=== PATIENT | male | born 1945 | race Caucasian/White ===

== ENCOUNTER 2019-08-31 15:16 | Inpatient (IN) | payer MEDICARE ==
[~2019-08-31 15:16] MED LIST: Iopamidol 370 76% 100 ML VIAL ONE
--- NOTE | 2019-08-31 16:10 | RAD ---
Exam: Chest one view HISTORY:Cough. Shortness of breath. Comparison: 06/30/2017 FINDINGS: Cardiac silhouette:Cardiomegaly. Aorta: Atherosclerosis Pulmonary vessels: Normal Costophrenic angles: Clear LUNGS: Increased right perihilar opacity which may represent pneumonia. Underlying mass lesion cannot be excluded in a patient with the Mediport catheter. Pneumothorax: None Osseous abnormalities: None IMPRESSION: 1. Cardiomegaly. 2. Atherosclerosis 3. Right perihilar opacity due to pneumonia or mass. Consider CT.
[2019-08-31 16:16] LABS: #Basophils 0.1 thou/uL (0.0-0.2); #Eosinphils 0.2 thou/uL (0.0-0.7); #Lymphocytes 1.2 thou/uL (1.20-3.40); #Monocytes 0.9 thou/uL (0.11-0.59); #Neutrophils 8.2 thou/uL (1.40-6.50); %Basophils 0.7 % (0.0-1.0); %Eosinophils 2.2 % (0.0-10.0); %Lymphocytes 10.9 % (21.0-51.0); %Monocytes 8.2 % (0.0-10.0); %Neutrophils 78.1 % (42.0-75.0); Hemoglobin 13.6 g/dL (14.0-18.0); Mean Corpuscular HGB CONC 31.2 g/dL (32.0-36.0); Mean Corpuscular Hemoglobin 27.7 pg (27.0-31.0); Mean Corpuscular Volume 88.8 fL (78.0-98.0); Mean Platelet Volume 10.7 fL (7.4-10.4); Platelet Count 193 thou/uL (130-400); RBC Distribution Width 14.6 % (11.5-14.5); Red Blood Cell (RBC) Count 4.91 mill/uL (4.70-6.10); White Blood Cell (WBC) Count 10.5 thou/uL (4.8-10.8)
[2019-08-31 16:33] LABS: ALT (SGPT) 17 U/L (8-55); AST (SGOT) 41 U/L (5-34); Albumin 3.6 g/dL (3.4-4.8); Alkaline Phosphatase 65 U/L (40-110); Anion Gap 11 mmol/L (10-20); BUN (Urea Nitrogen) 21 mg/dL (8.4-25.7); Bilirubin, Total 0.5 mg/dL (0.2-1.2); Calc. Creatinine Clearance 0 mL/min (70-130); Calcium 9.6 mg/dL (7.8-10.44); Carbon Dioxide 33 mmol/L (23-31); Chloride 100 mmol/L (98-107); Estimated GFR-MDRD 41; Globulin 3.7 g/dL (2.4-3.5); Glucose 325 mg/dL (83-110); Potassium 3.6 mmol/L (3.5-5.1); Protein, Total 7.3 g/dL (5.8-8.1); Sodium 140 mmol/L (136-145)
[2019-08-31 17:05] LABS: CKMB 14.2 ng/mL (0-6.6)
[2019-08-31] MEDS ORDERED: Aspirin Chewable 81 MG TAB ONE (17:29)
[2019-08-31] MEDS ORDERED: Nitroglycerin 2% Ointment 1 INCH/1 GM Packet ONE (17:29)
--- NOTE | 2019-08-31 18:42 | CT ---
CT OF THE CHEST WITH IV CONTRAST INDICATION: 73-year-old male with history of weakness and fall COMPARISON: Single view of the chest dated August 31, [address]-guided therapy field planning evalua tion of the lower abdomen and pelvis dated October 12, 2008. FINDINGS: CHEST: Lungs: There is a large right suprahilar mass measuring 4.8 x 4.3 cm with postobstructive pneumonia o f the anterior segment of the right upper lobe. There is a right lower lobe lung mass measuring 3.4 x 2.7 cm. There is reticular nodularity seen within the posterior lateral segment of the right lower lobe suspicious for lymphangitic spread of the lesion. There is a sub-4 mm pulmonary nodule in the right upper lobe on image 36 of series 3. There is severe emphysema. There is reticular opacity withi n the subpleural region of the left upper lobe suspicious for areas of subsegmental volume loss. No suspicious pulmonary lesion is seen within the left lung. . Pleural space: No effusion. Mediastinum: There is a mildly enlarged right paratracheal lymph node measuring 1.3 cm. There coronar y artery and thoracic aortic calcifications. There is a right subclavian chest wall port. Upper abdomen:Fatty liver Osseous structures: No acute osseous abnormality. No destructive osteolytic or osteoblastic lesion i s identified. There is scattered degenerative and osteoarthritic changes. Soft tissues:Normal. IMPRESSION: 1. Large right suprahilar mass with postobstructive pneumonia of the right upper lobe is suspicious f or primary lung malignancy 2. Right lower lobe lung mass suspicious for secondary primary lung malignancy versus metastatic dise ase. There are reticular opacities projecting into the posterior lateral right lower lobe from this lesion suspicious for lymphangitic spread of tumor. 3. Mildly enlarged right paratracheal lymph node. 4. PET/CT is recommended. Patient has history of rectal cancer. The above-mentioned lesions could be metastatic in origin. 5. Fatty liver
[2019-08-31] MEDS ORDERED: Acetaminophen 325 MG TAB PO PRN (20:17)
[2019-08-31] MEDS ORDERED: Acetaminophen 650 MG Suppository PR PRN (20:17)
[2019-08-31] MEDS ORDERED: Dextrose 50% Abboject 50 ML SYRINGE SLOW IVP PRN (20:44)
[2019-08-31] MEDS ORDERED: HumaLOG 300 UNITS/3 ML VIAL SC PRN (20:44)
[2019-08-31] MEDS ORDERED: Dextrose 5% in Water 1,000 ML IV PRN (20:44)
[2019-08-31 20:57] LABS: Magnesium 1.5 mg/dL (1.6-2.6)
[2019-08-31 21:24] LABS: CKMB 13.4 ng/mL (0-6.6); Critical Call CKMB RESULT DECREASING
[2019-08-31] MEDS ORDERED: Magnesium Oxide 400 MG TAB PO SCH (22:00)
[2019-08-31] MEDS ORDERED: Sodium Chloride 0.45% 1,000 ML IV SCH (22:00)
--- NOTE | 2019-08-31 22:58 | HP ---
TIME OF ASSESSMENT: 1899. CHIEF COMPLAINT: "My legs are weak and I fell over a day ago." HISTORY OF PRESENT ILLNESS: Mr. Oleary is a 73-year-old gentleman who presented to the emergency department today after having a fall at home yesterday. The patient states his legs gave out and states he suddenly experienced lower extremity weakness since 2 days ago. Denies any major injuries except for abrasions to both of his knees. Denies having any pain at present. He states he was down on the floor, unable to get back up due to the weakness in his legs. Normally, he does not use any assistive devices to get around. He is able to walk independently. He reports having issues with urinary hesitancy for the last 3 days, but denies any dysuria. Denies any hematuria. States he has felt as if he is unable to fully empty his bladder. Also reports having a cough that developed 3 days ago which has been occasionally productive for brown to bloody looking sputum. Denies having any associated chest pain. Reports chronic shortness of breath that remains unchanged. He has a history of COPD and continues to smoke. He uses continuous oxygen at home and also uses inhalers, but does not use nebulizer treatments. Denies experiencing any wheezing. Again, no changes with his breathing and states he feels like his normal self except for the lower extremity weakness. Denies any associated numbness or tingling to the lower legs, but does report some pain in his legs. Has not noted any significant calf swelling. Denies having any changes with his stools. No recent fevers or chills. No headaches or dizziness. Prior to falling, he denies experiencing any symptoms. At present, he denies any major complaints. Of note, patient does have a history of colon cancer and underwent resection many years ago. He has an ostomy. EMERGENCY DEPARTMENT COURSE: The patient was first seen at [facility] yesterday at approximately 3 p.m. He had commented in due to "spasm" in the left leg. He had complained of both legs feeling weak at that time. Neuro examination unremarkable. The patient had been discharged home as he was noted to ambulate well with a walker. He did receive 1 L of normal saline while in the ER. Also underwent investigations, including a urinalysis which showed 500 of glucose, trace blood, rare to few bacteria and otherwise unremarkable. LABORATORY STUDIES: Done showed a white cell count of 9, hemoglobin 12.2, hematocrit 42.7, platelets 184. Magnesium 1.6, BUN 26, creatinine 1.99, GFR 33, albumin 3.3. Otherwise unremarkable. Troponin was negative. He had imaging done including a lumbar spine x-ray which showed mild degenerative changes at L4-L5 with minor spondylolisthesis and pars defects at L4. CT of the head was also done showing no acute intracranial findings. An EKG showed an incomplete right bundle-branch block with normal ST segments and nonspecific T-waves. Normal sinus rhythm with a heart rate of 63. The patient felt to be mildly dehydrated with improvement in ambulation with the help of a walker and therefore deemed safe for discharge home. The case had been discussed with Dr. Sung, who planned to arrange for a walker to be given today. Apparently, patient fell while at home and was unable to stand up. He had a chest x-ray done today showing cardiomegaly with atherosclerosis and presence of a right perihilar opacity due to pneumonia or mass. CT of the chest was recommended. A CT of the chest then demonstrated a large right suprahilar mass with postobstructive pneumonia of the right upper lobe suspicious for primary lung malignancy. Right lower lobe lung mass suspicious for secondary primary lung malignancy versus metastatic disease. There were reticular opacities projecting into the posterior lateral right lower lobe suspicious for lymphangitic spread. A mildly enlarged right peritracheal lymph node was noted. Given history of rectal cancer, it was felt findings could be metastatic in nature, therefore, a PET-CT scan was recommended. Also noted were fatty liver changes. He was noted on the laboratory studies to have an indeterminate troponin of 0.036 and CK-MB of 14.2. He was given 324 mg of aspirin and an EKG was done showing normal sinus rhythm with a heart rate of 93. Nonspecific ST changes as per ED physician. The patient was given 1 L of normal saline, also Nitro-Bid 1 inch. He is being admitted for lower extremity weakness, elevated troponin, and hyperglycemia. PAST MEDICAL HISTORY: 1. Type 2 diabetes mellitus. 2. History of colon cancer. 3. Hypertension. 4. Hyperlipidemia. 5. Peripheral arterial disease. 6. COPD. 7. CHF. 8. Home O2 dependent, 3 L by nasal cannula. 9. Obesity. PAST SURGICAL HISTORY: 1. Previous back surgery. 2. Bilateral peripheral stents in both legs. 3. Colon resection with ostomy in place. 4. Coronary artery stents. SOCIAL HISTORY: The patient lives alone and normally mobilizes independently. Denies any alcohol consumption. Smokes half a pack a day and previously smoked one pack a day for 50 years. ALLERGIES: NO KNOWN DRUG ALLERGIES. PHYSICAL EXAMINATION: GENERAL: The patient appears obese, resting comfortably on a stretcher, in no acute distress. VITAL SIGNS: Temperature 98.5, pulse 77, blood pressure 150/60, respirations 23, O2 saturation 95% on 2 L. HEENT: Normocephalic and atraumatic. Pupils are equal, round, and reactive to light. Extraocular movements intact. Oropharynx is notable for dry oral mucosa. NECK: Supple. LUNGS: Notable for coarse lung sounds bilaterally without any wheezing. CARDIAC: Regular rate and rhythm. ABDOMEN: Obese, soft, nontender. Large left lower quadrant parastomal hernia. No rigidity. Bowel sounds present. EXTREMITIES: Abrasions noted to the bilateral knees with slight erythema. No active bleeding or discharge. Chronic skin changes to the lower extremities associated with history of PAD. No wounds or evidence of cellulitis. Unable to straight leg raise due to general weakness. Sensation intact in bilateral extremities. NEUROLOGIC: Alert and oriented x3. Full range of motion and 4/4 strength in bilateral upper extremities. Lower extremities, unable to straight leg raise without resistance. Able to plantarflex and extend with good amount of power bilaterally. INVESTIGATIONS: As mentioned above in HPI. IMPRESSION AND PLAN: Mr. Oleary is a 73-year-old gentleman who reports having a mechanical fall at home yesterday after being discharged from the ER in [place] and being admitted for management of the following. 1. Lower extremity weakness. The patient reports it came on suddenly 2 days ago. Has not noted any associated neuro deficits or gradual decline in lower extremity strength. Therefore, underlying neuro cause unlikely, though is a possibility. He did report having some urinary hesitancy in the last couple of days. We will obtain repeat UA and urine culture and we will have a postvoid bladder scan done to assess for any underlying retention. There was mention of pneumonia on chest imaging, therefore, underlying infection could be a cause in addition to malignancy. Given the fall was yesterday and he was on the ground for hours, we will obtain a CK to assess for rhabdomyolysis. I have consulted PT/OT. The patient at risk for falls, though he denies any presyncope/syncope type symptoms. We will continue cardiac monitoring, obtain an echo and orthostatic blood pressures. Continue gentle hydration. 2. Elevated troponin. As mentioned, patient with indeterminate troponin. We will continue to trend troponins. CK-MB was elevated, but this could potentially be due to rhabdomyolysis. I have ordered CK as mentioned above. We will continue cardiac monitoring. EKG unremarkable. The patient without any complaints of chest pain. Further investigations as per Day Team. 3. Lung masses (primary versus metastatic disease). The patient with a known history of colon cancer. PET-CT has been recommended. Consult placed to Pulmonary for bronchoscopy with biopsy. We will consult Oncology as well. Further investigations as per Day Team. We will keep the patient n.p.o. after midnight. 4. Diabetes mellitus, uncontrolled. Glucose is 325. Insulin sliding scale initiated. We will reconcile home medications once verified. 5. Hypertension. Monitor blood pressure. Reconcile home medications once verified. 6. Chronic obstructive pulmonary disease. As mentioned, patient is dependent on O2 at home. Continue to monitor O2 saturations, which appeared to be stable. Given renal function, it would be difficult to rule out the possibility of PE as a cause of the fall. The patient is a poor historian, though he continues to insist it was a mechanical fall rather than syncopal episode/collapse. Since he does complain of bilateral leg pain, we will obtain venous Dopplers. 7. Chronic congestive heart failure. No echocardiogram on file. As mentioned, we will obtain an echo. 8. Gastrointestinal prophylaxis with famotidine. 9. Deep venous thrombosis prophylaxis. We will hold any pharmacoprophylaxis in the event that he requires any biopsies. Also we will await results of venous Dopplers. 10. Code status is full. Surrogate decision maker is his son, Dev Oleary. Case discussed with attending who agrees upon care as described above. Job ID: [id number]
--- NOTE | 2019-08-31 23:04 | ULT ---
BILATERAL LOWER EXTREMITY VENOUS DOPPLER EVALUATION PROVIDED CLINICAL HISTORY: Fall with bilateral lower extremity stents and concern for bilateral lower extremity deep venous thro mboses TECHNIQUE: Grayscale, color doppler and spectral doppler images were obtained of the common femoral , femoral, profunda femoral, popliteal and posterior tibial veins of both lower extremities. FINDINGS: There is normal compression, flow and augmentation seen with the deep venous structures within both l ower extremities. IMPRESSION: No sonographic evidence for lower extremity deep venous thrombosis.
[2019-08-31] MEDS: Famotidine/PF 20 mg/2ml Vial SLOW IVP SCH (23:11)
[2019-08-31] MEDS: Sodium Chloride 0.45% 1,000 ML IV SCH (23:31)
[2019-09-01 00:01] VITALS: BMI 34.3
[2019-09-01 00:48] LABS: CKMB 13.3 ng/mL (0-6.6); Critical Call CKMB RESULT DECREASING
[2019-09-01 00:53] LABS: Bacteria/HPF None Seen HPF (None Seen); Bilirubin Negative (Negative); Blood, Urine 2+ (Negative); Clarity Clear (Clear); Glucose, Urine (Dipstick) Greater than 1000 mg/dL (Negative); Ketone, Urine Negative (Negative); Leukocyte Negative Leu/uL (Negative); Nitrite Negative (Negative); Protein, Urine (Dipstick) 70 mg/dL (Neg-Trace); RBC/HPF 0-3 HPF (0-3); Specific Gravity, Urine 1.024 (1.002-1.036); Squamous Epithelial 0-3 HPF (0-3); Urobilinogen Normal mg/dL (Less than 2); WBC/HPF 0-3 HPF (0-3); pH, Urine 5.5 (5.0-9.0)
[2019-09-01 00:55] LABS: Urine Culture Reflex No No
[2019-09-01 01:06] LABS: Amphetamine Not Detected (NotDetected); Barbiturates Screen Not Detected (NotDetected); Benzodiazepine Screen Not Detected (NotDetected); Cocaine Metabolite Screen Not Detected (NotDetected); Medtox Control Line Valid? VALID (VALID); Medtox Reader # READER 4; Methadone Not Detected (NotDetected); Methamphetamine Not Detected (NotDetected); Opiate Screen Not Detected (NotDetected); Oxycodone Screen Not Detected (NotDetected); Phencyclidine (PCP) Not Detected (NotDetected); THC/Cannabinoid Screen Not Detected (NotDetected); Tricyclic Screen Not Detected (NotDetected)
[2019-09-01 04:46] LABS: Prothrombin Time 13.4 sec (12.0-14.7)
[2019-09-01 05:29] LABS: ALT (SGPT) 21 U/L (8-55); AST (SGOT) 49 U/L (5-34); Albumin 3.3 g/dL (3.4-4.8); Alkaline Phosphatase 59 U/L (40-110); Anion Gap 11 mmol/L (10-20); BUN (Urea Nitrogen) 15 mg/dL (8.4-25.7); Bilirubin, Total 0.5 mg/dL (0.2-1.2); Calc. Creatinine Clearance 91 mL/min (70-130); Calcium 9.2 mg/dL (7.8-10.44); Carbon Dioxide 29 mmol/L (23-31); Chloride 103 mmol/L (98-107); Estimated GFR-MDRD 59; Globulin 3.5 g/dL (2.4-3.5); Glucose 194 mg/dL (83-110); Potassium 3.6 mmol/L (3.5-5.1); Protein, Total 6.8 g/dL (5.8-8.1); Sodium 139 mmol/L (136-145)
[2019-09-01 06:36] LABS: #Eosinphils 0.4 thou/uL (0.0-0.7); #Lymphocytes 1.4 thou/uL (1.20-3.40); #Monocytes 0.6 thou/uL (0.11-0.59); %Basophils 0.6 % (0.0-1.0); %Eosinophils 5.5 % (0.0-10.0); %Lymphocytes 18.6 % (21.0-51.0); %Neutrophils 67.2 % (42.0-75.0); Hemoglobin 13.3 g/dL (14.0-18.0); Mean Corpuscular Hemoglobin 26.6 pg (27.0-31.0); Mean Corpuscular Volume 88.6 fL (78.0-98.0); Mean Platelet Volume 10.8 fL (7.4-10.4); Platelet Count 181 thou/uL (130-400); RBC Distribution Width 14.7 % (11.5-14.5); Red Blood Cell (RBC) Count 5.01 mill/uL (4.70-6.10); White Blood Cell (WBC) Count 7.4 thou/uL (4.8-10.8)
[2019-09-01 06:39] LABS: Anisocytosis SLIGHT = 6-15 cells (100X) (0-5/hpf); MDiff Complete? YES; Target Cells SLIGHT = 2-5 cells (100X) (0-1/hpf)
[2019-09-01] MEDS: Famotidine/PF 20 mg/2ml Vial SLOW IVP SCH ×2 (09:53→20:18)
[2019-09-01] MEDS ORDERED: Lisinopril 20 MG TAB PO SCH (12:30)
--- NOTE | 2019-09-01 13:20 | CON ---
DATE OF CONSULTATION: REASON FOR CONSULTATION: Lung mass. HISTORY OF PRESENT ILLNESS: Mr. Oleary is a pleasant 73-year-old gentleman with past medical history of rectal cancer, CHF, and COPD, who presented to the emergency room after a fall at home. He was emptying his colostomy, when he became extremely weak and landed on both knees, both have abrasions. He underwent a brain CT in the ER, which showed no acute findings, although there was significant movement artifact. He underwent a chest CT, which showed a large right suprahilar mass, measuring 4.8 x 4.3 cm. There was postobstructive pneumonia of the anterior segment of the right upper lobe. There was a right lower lobe mass, measuring 3.4 x 2.7 cm. There was reticular nodularity, consistent with lymphangitic spread. There was a sub 4-mm pulmonary nodule in the right upper lobe. He has severe emphysema. There was a mildly enlarged right peritracheal lymph node, measuring 1.3 cm. No metastatic disease in the abdomen. The patient has a longstanding history of smoking [id number] at least. He currently only smokes 5 cigarettes a day. He does have a diagnosis of COPD and is oxygen dependent at home. He denies any recent weight loss. No increasing cough. No hemoptysis. He apparently had rectal cancer around 2008. He was treated at [facility]. He did undergo chemotherapy and had a curative resection. He was followed for 5 years and was last seen in 2013. He has had no issues with his bowels since that time. We were asked to see the patient for recommendations on diagnosis. PAST MEDICAL HISTORY: 1. Rectal cancer status post curative resection. 2. Type 2 diabetes. 3. Hypertension. 4. Hyperlipidemia. 5. COPD with oxygen dependency. 6. Congestive heart failure. 7. Peripheral artery disease. 8. Obesity. PAST SURGICAL HISTORY: 1. Transabdominal resection with colostomy. 2. Back surgery. 3. Bilateral peripheral stents. 4. Coronary artery stents. ALLERGIES: NO KNOWN DRUG ALLERGIES. HOME MEDICATIONS: 1. Atorvastatin. 2. Coreg. 3. Plavix. 4. Fenofibrate. 5. Lasix. 6. Glipizide. 7. Atrovent. 8. Levocetrizine. 9. Levothyroxine. 10. Lisinopril. 11. Actos. 12. Pregabalin. FAMILY HISTORY: Noncontributory. SOCIAL HISTORY: Lives alone. Independent in his ADLs. A [id number] plus of smoking. No alcohol use. REVIEW OF SYSTEMS: A 12-point review of systems is negative except for noted in HPI. PHYSICAL EXAMINATION: VITAL SIGNS: Temperature 97.8, pulse 78, respiratory rate 24, BP is 173/79, and he is 95% on 2 L. GENERAL: This is an obese male, disheveled, in no acute distress. HEENT: Normocephalic and atraumatic. Pupils are equal and reactive to light. NECK: Supple. CV: Regular rate and rhythm. LUNGS: Diminished throughout with expiratory wheezing. ABDOMEN: Obese. He has a colostomy in the left lower quadrant with brown stool. : He has a Church catheter in place with blood-tinged urine. EXTREMITIES: He has 1+ bilateral lower extremity. SKIN: He has chronic skin discoloration to his shins. NEUROLOGIC: Nonfocal. PERTINENT LABORATORY DATA AND X-RAYS: Current WBCs are 7.4, hemoglobin 13.3, hematocrit 44.4, and platelet count 181,000. He has 67% neutrophils and 18% lymphocytes. PT 13.4, INR is 1, and PTT is 32. Sodium 139, potassium 3.6, chloride 103, CO2 is 29, BUN is 15, creatinine 1.21, and calcium 9.2. Bilirubin 0.5, AST is 49, ALT is 21, alkaline phosphatase is 59. CK is 13.3 and troponin is 0.034. Serum total protein is 6.8, albumin 3.3, and globulin 3.5. Radiology per HPI. ASSESSMENT: 1. Right suprahilar mass and right lower lobe lung mass, consistent with primary lung cancer. 2. History of rectal cancer with resection. 3. Chronic obstructive pulmonary disease with oxygen dependency. 4. Hematuria. DISCUSSION: The patient likely has lung cancer with his significant history of smoking. Dr. Woods has been consulted for his assistance with diagnosis. We do need tissue to confirm malignancy and for immunohistochemical stains. The patient needs an abdominal and pelvis CT scan as well as a brain MRI. We will discuss this further with Dr. Morse. Further recommendations regarding prognosis and treatment will be based on pathology results. Thank you for the consult. Job ID: [id number] [facility]
[2019-09-01] MEDS ORDERED: Iopamidol 370 76% 100 ML VIAL ONE (13:42)
[2019-09-01] MEDS: Sodium Chloride 0.45% 1,000 ML IV SCH (13:49)
[2019-09-01] MEDS: HumaLOG 300 UNITS/3 ML VIAL SC PRN (17:55)
[2019-09-01] MEDS: Mometasone 200 MCG/Formoterol 5 MCG 120 PUFF INHALER INH SCH (18:32)
--- NOTE | 2019-09-01 18:55 | CT ---
CT OF THE ABDOMEN AND PELVIS WITH IV CONTRAST INDICATION: Concern for metastatic disease of the abdomen and pelvis COMPARISON: CT of the thorax dated August 31, [address] the abdomen and pelvis dated September 28, 2008. FINDINGS: ABDOMEN: Lung bases: Right lower lobe lung mass is again demonstrated. Liver: There is diffuse fatty liver Gallbladder: Decompressed Pancreas: Normal. Adrenal glands: Normal. Spleen: Normal. Kidneys and ureters: Normal. No hydronephrosis. Vasculature: There are moderate vascular calcifications seen involving the visualized vasculature. Lymph nodes:No lymphadenopathy. Free fluid in abdomen:No free fluid is evident. PELVIS: Small and large bowel: There is an intra-abdominal wall hernia containing portions of the anterior wa ll of the transverse colon. There is a left lower quadrant parastomal hernia containing small bowel loops without obstruction. Appendix:Not definitely seen Bladder: Decompressed with a Church catheter. There is prominent bladder wall thickening. Rectal and perirectal soft tissues:There is a mixed density soft tissue mass seen within the presacra l region of the lower pelvis contiguous with the left posterior lateral aspect of the bladder. Reproductive structures: Prostate is mildly enlarged. Free fluid in pelvis: No free fluid is evident. Lymphadenopathy pelvis: There is a large right common iliac lymph node measuring 1.2 cm. There is a d istal left periaortic lymph node is mildly enlarged measuring 1 cm. Osseous structures: There is a 3 cm expansile lytic lesion involving the right transverse process of L3 suspicious for metastatic lesion. There is postsurgical change consistent with a decompression of the lower lumbar spine. This is seen at L4 and L5. There is scattered degenerative and osteoarthr itic changes. Soft tissues:Normal. IMPRESSION: 1. Findings suspicious for recurrent irregular soft tissue mass within the lower rectum. PET/CT is re commended for additional characterization. 2. Enlarged lymph nodes in the periaortic and left common iliac chain are suspicious for malignant ly mphadenopathy. 3. Expansile lytic lesion in the right L3 transverse process suspicious for osseous metastatic diseas e.
[2019-09-01] MEDS: Carvedilol 6.25 MG TAB PO SCH (20:18)
[2019-09-01] MEDS: Pregabalin 50 MG CAP PO SCH (20:18)
[2019-09-01] MEDS: Atorvastatin Calcium 40 MG TAB PO SCH (20:18)
--- NOTE | 2019-09-01 21:00 | PDOC.HOSPP ---
- Subjective Encounter Date: 09/01/19 Encounter Time: 10:00 Subjective: no overnight events. Patient endorses that he fell on his knee during micturition. however denied prodromal or post-episode symptoms of reflex syncope. this morning, feeling better and requests to go home. explained at length about conditions, risks and benefits of treatment and nontreatment, and exhibited reasoning and understanding so has decisional capacity. - Objective Vital Signs & Weight: Vital Signs (12 hours) Temp Pulse Resp BP BP BP BP 09/01/19 20:18 136/88 09/01/19 15:22 171/81 H 170/99 H 09/01/19 15:20 98.0 F 94 20 177/81 H 09/01/19 14:39 156/58 H 09/01/19 11:15 97.6 F 94 20 180/98 H 09/01/19 09:50 BP BP BP Pulse Ox 09/01/19 20:18 09/01/19 15:22 09/01/19 15:20 93 L 09/01/19 14:39 09/01/19 11:15 94 L 09/01/19 09:50 177/71 H 169/73 H 187/83 H Weight Admit Weight 253 lb 6 oz Weight 253 lb 6 oz I&O: 08/31/19 09/01/19 09/02/19 06:59 06:59 06:59 Intake Total 720 1020 Output Total 1275 1150 Balance -555 -130 Result Diagrams: 09/01/19 03:55 09/01/19 03:55 Additional Labs: Accuchecks 09/01/19 08/31/19 11:30 23:21 POC Glucose 173 H 234 H Hospitalist ROS - Review of Systems Constitutional: reports: weakness. denies: fever, chills, sweats, malaise ENT: denies: ear pain, ear discharge Respiratory: denies: cough, dry, shortness of breath, pleuritic pain Cardiovascular: reports: edema. denies: chest pain, palpitations, orthopnea, paroxysmal noc. dyspnea Gastrointestinal: denies: nausea, vomiting, abdominal pain, diarrhea Genitourinary: denies: dysuria, frequency, incontinence, hematuria - Medication Medications: Active Medications Generic Name Dose Route Start Last Admin Trade Name Freq PRN Reason Stop Dose Admin Atorvastatin Calcium 40 mg 09/01/19 21:00 09/01/19 20:18 Lipitor PO 40 mg HS JOIE Administration Carvedilol 6.25 mg 09/01/19 21:00 09/01/19 20:18 Coreg PO 6.25 mg BID JOIE Administration Famotidine 20 mg 08/31/19 21:00 09/01/19 20:18 Pepcid SLOW IVP 20 mg Q12HR JOIE Administration Sodium Chloride 1,000 mls @ 65 mls/hr 08/31/19 23:27 09/01/19 13:49 1/2 Normal Saline IV 1,000 mls .[id number] JOIE Administration Insulin Human Lispro 0 units 08/31/19 20:44 09/01/19 17:55 Humalog SC 2 unit .MILD SLIDING SCALE PRN Administration Mild Correctional Scale Mometasone Furoate/Formoterol Fumar 2 puff 09/01/19 18:30 09/01/19 18:32 Dulera 200 Mcg/5 Mcg Inhaler INH Not Given BID-RT JOIE Pregabalin 200 mg 09/01/19 21:00 09/01/19 20:18 Lyrica PO 200 mg BID JOIE Administration - Exam General Appearance: NAD, awake alert Neck: no JVD Heart: RRR, no murmur, no gallops, no rubs Respiratory: CTAB, no wheezes, no rales, no ronchi Gastrointestinal: soft, non-tender, non-distended, normal bowel sounds Extremities: 2+ LE edema Psychiatric: normal affect, normal behavior, A&O x 3 Hosp A/P - Plan #presyncope -orthostatic hypotension based on decrease in diastolic pressure -vasovagal component may be present, especially in context of urinary retention likely requiring increased intraabdominal pressure * -should improve with resolution of urinary retention, orthostatic hypotension , behavioral changes * #lung mass -hisotry of colon cancer -pending onc and PCCM evaluation #gross hematuria #urinary retention -bland sedimen on UA -may be prostate related or urinary bladder lesion -pending CT abd/pelvis for biopsy purposes as per onc; may provide information re hematuria etiology -continue Church full code
[2019-09-01] MEDS ORDERED: Labetalol HCl 100 MG/20 ML VIAL SLOW IVP PRN (21:14)
[2019-09-01] MEDS ORDERED: hydrALAZINE 20 MG/ML VIAL SLOW IVP PRN (21:14)
[2019-09-01] MEDS ORDERED: Electrolyte Replacement Protocol FS SCH (21:30)
--- NOTE | 2019-09-02 00:53 | CON ---
DATE OF CONSULTATION: 09/01/2019 HISTORY OF PRESENT ILLNESS: Darrin Oleary is a 73-year-old male who was admitted after an episode of falling at home. He says he got up, did not feel right and fell and struck his knees and could not get back up. He says he feels better. He has not ambulated yet. PAST MEDICAL HISTORY: 1. Remarkable for colon cancer 12 years ago with an ostomy. 2. History of diabetes. 3. History of colon cancer. 4. Hypertension. 5. Lipid disorder. 6. Peripheral vascular disease. 7. Chronic obstructive pulmonary disease. 8. History of cardiomyopathy. 9. Chronic oxygen use at home. 10. History of obesity. 11. History of back surgery. 12. History of lower extremity stenting. 13. History of colostomy. 14. History of coronary stenting. SOCIAL HISTORY: He is a smoker. He is not a drinker. ALLERGIES: HE HAS NO DRUG ALLERGIES. REVIEW OF SYSTEMS: Ten point is negative. He says he is back to his baseline, but also he has not ambulated, so it is unclear whether or not he can ambulate. PHYSICAL EXAMINATION: VITAL SIGNS: He is afebrile. Heart rate is 94, respiratory rate is 20, oximetry is 93% on 2 L and blood pressure 177/81. HEENT: Pupils are equal sclerae is anicteric. NECK: Supple. No lymphadenopathy. LUNGS: Clear. HEART: Regular rhythm. No S3. ABDOMEN: Soft and nontender. EXTREMITIES: Without clubbing, cyanosis, or edema. IMAGING: Chest CT was reviewed. He has a large right upper lobe mass that abuts his trachea. This is not easily accessible with the bronchoscope. He also has another mass in his lower lung field. IMPRESSION: Bronchogenic carcinoma, most likely. PLAN: CT-guided biopsy as an outpatient. His workup for lower extremity weakness needs to be completed. He had a CT of his abdomen today, which shows a fatty liver, vascular calcifications and abdominal hernia. No mass in the presacral region. An enlarged prostate. A lytic bone lesion in his transverse L3 process. He needs more magnetic resonance imaging of the spine and his brain. In my opinion, the biopsy can go to the [facility] for now. He will need a biopsy of his lung mass unless we find something else that is more accessible. This is a 50-minute consult, 50% of the time was spent on the unit coordinating care. Job ID: [id number] MTDD
[2019-09-02 04:41] LABS: Anion Gap 9 mmol/L (10-20); BUN (Urea Nitrogen) 11 mg/dL (8.4-25.7); Calc. Creatinine Clearance 99 mL/min (70-130); Carbon Dioxide 33 mmol/L (23-31); Chloride 98 mmol/L (98-107); Estimated GFR-MDRD 65; Glucose 167 mg/dL (83-110); Magnesium 1.5 mg/dL (1.6-2.6); Potassium 3.4 mmol/L (3.5-5.1); Sodium 137 mmol/L (136-145)
[2019-09-02] MEDS: Levothyroxine 150 MCG TAB PO SCH (05:26)
[2019-09-02] MEDS: Sodium Chloride 0.45% 1,000 ML IV SCH ×2 (05:27→06:33)
[2019-09-02] MEDS ORDERED: Magnesium 2 GM/50 ML 2 GM in Premix Bag 1 BAG IVPB SCH (06:15)
[2019-09-02] MEDS ORDERED: Potassium Chloride 20 MEQ TAB PO SCH (06:45)
[2019-09-02] MEDS: Mometasone 200 MCG/Formoterol 5 MCG 120 PUFF INHALER INH SCH ×2 (07:02→19:17)
[2019-09-02] MEDS ORDERED: Furosemide 40 MG TAB PO SCH (09:00)
[2019-09-02] MEDS: Pregabalin 50 MG CAP PO SCH ×2 (10:26→20:48)
[2019-09-02] MEDS: Famotidine/PF 20 mg/2ml Vial SLOW IVP SCH ×2 (10:27→20:49)
[2019-09-02] MEDS: Lisinopril 10 MG TAB PO SCH (10:27)
[2019-09-02] MEDS: Carvedilol 6.25 MG TAB PO SCH ×2 (10:28→20:49)
[2019-09-02] MEDS: HumaLOG 300 UNITS/3 ML VIAL SC PRN ×2 (11:40→17:38)
--- NOTE | 2019-09-02 11:59 | PRG ---
DATE OF SERVICE: 09/02/2019 SUBJECTIVE: Darrin Oleary wants to go home. He still has not walked because he says normally let him get out of bed. OBJECTIVE: VITAL SIGNS: Afebrile, heart rate is 80, respiratory rate is 18, oximetry is 93% on 2 L, blood pressure 170/77. LUNGS: Remarkable for end-expiratory wheezes. HEART: Regular rhythm. ABDOMEN: Soft. IMPRESSION: 1. Lung mass. 2. Probable chronic obstructive pulmonary disease. 3. Status post fall at home, unclear etiology. No rhythm disturbances have been reported. Certainly with a large lung mass, he is at risk for brain metastases , so probably should have an MRI of his brain. He needs physical therapy to see if he can ambulate; if he cannot effectively ambulate, he may have need some imaging of his spine as well. 4. If he is discharged home, I have given him my phone number and he will call me next week so I can set him up for CT-guided lung biopsy. Job ID: [id number] MTDD
--- NOTE | 2019-09-02 14:21 | PDOC.MOPN ---
Interval History: ambulatory in hallway with walker - Vital Signs Vital Signs: Vital Signs (12 hours) Temp Pulse Resp BP BP BP Pulse Ox 09/02/19 13:10 98.0 F 83 16 115/87 95 09/02/19 07:50 99.3 F 75 16 167/72 H 93 L 09/02/19 03:30 98.7 F 80 18 170/77 H 92 L Weight Admit Weight 253 lb 6 oz Weight 253 lb 3.2 oz - Physical Exam General: Alert HEENT: Atraumatic Lungs: Other (wheeze) Cardiovascular: Regular rate Abdomen: Normal bowel sounds, Other (colonoscopy) Neurological: Normal speech - Labs Result Diagrams: 09/01/19 03:55 09/02/19 03:59 Lab results: Laboratory Results - last 24 hr 09/02/19 11:09: POC Glucose 270 H 09/02/19 06:14: POC Glucose 168 H 09/02/19 03:59: Sodium 137, Potassium 3.4 L, Chloride 98, Carbon Dioxide 33 H, Anion Gap 9 L, BUN 11, Creatinine 1.11, Estimated GFR (MDRD) 65, Glucose 167 H, Calcium 9.0, Magnesium 1.5 L 09/01/19 21:21: POC Glucose 260 H 09/01/19 16:53: POC Glucose 195 H Status: lab reviewed by me A/P - Problem (1) Lung mass Current Visit: Yes Code(s): R91.8 - OTHER NONSPECIFIC ABNORMAL FINDING OF LUNG FIELD Status: Acute (2) History of rectal cancer Current Visit: Yes Code(s): Z85.048 - PRSNL HX OF MALIG NEOPLM OF RECTUM, RECTOSIG JUNCT, AND ANUS Status: Acute - Plan Plan: Continue working with physical therapy MRI brain today need tissue biopsy, may be done outpatient follow-up clinic after diagnosis
[2019-09-02] MEDS ORDERED: Magnevist 469MG/ML 20 ML VIAL ONE (14:48)
--- NOTE | 2019-09-02 18:27 | MRI ---
MRI OF THE BRAIN WITH AND WITHOUT IV CONTRAST: 09/02/19 HISTORY: Lung cancer. FINDINGS: No restricted diffusion is seen. There are multiple foci of T2 prolongation in the periventricular wh ite matter consistent with chronic small vessel ischemic disease. The ventricular size is appropriate and the basilar cisterns patent. No evidence of infarct, hemorrhage, mass, midline shift or abnormal extra-axial fluid collections seen. No abnormal postcontrast enhancement is noted. The visualized pa ranasal sinuses and mastoid air cells are well aerated. IMPRESSION: No evidence of brain metastasis. POS: [facility]
--- NOTE | 2019-09-02 20:00 | PDOC.HOSPP ---
- Subjective Encounter Date: 09/02/19 Encounter Time: 09:00 Subjective: no overnight events. This morning, feeling well, claims that sits, stands, and walks without lightheadedness and dizziness. pending CT abd and brain MRI - Objective Vital Signs & Weight: Vital Signs (12 hours) Temp Pulse Resp BP Pulse Ox 09/02/19 19:19 97 09/02/19 19:17 16 95 09/02/19 17:00 97.9 F 64 18 141/66 H 97 09/02/19 13:10 98.0 F 83 16 115/87 95 Weight Admit Weight 253 lb 6 oz Weight 253 lb 3.2 oz I&O: 09/01/19 09/02/19 09/03/19 06:59 06:59 06:59 Intake Total 720 1320 1345 Output Total 1275 2350 750 Balance -555 -4070 595 Result Diagrams: 09/01/19 03:55 09/02/19 03:59 Additional Labs: Accuchecks 09/02/19 09/02/19 09/02/19 16:34 11:09 06:14 POC Glucose 226 H 270 H 168 H 09/01/19 09/01/19 21:21 16:53 POC Glucose 260 H 195 H Hospitalist ROS - Review of Systems Constitutional: denies: fever, chills, sweats Respiratory: denies: cough, dry, shortness of breath Cardiovascular: denies: chest pain, palpitations, orthopnea Gastrointestinal: denies: nausea, vomiting, abdominal pain, diarrhea - Medication Medications: Active Medications Generic Name Dose Route Start Last Admin Trade Name Williamq PRN Reason Stop Dose Admin Atorvastatin Calcium 40 mg 09/01/19 21:00 09/01/19 20:18 Lipitor PO 40 mg HS JOIE Administration Carvedilol 6.25 mg 09/01/19 21:00 09/02/19 10:28 Coreg PO 6.25 mg BID JOIE Administration Famotidine 20 mg 08/31/19 21:00 09/02/19 10:27 Pepcid SLOW IVP 20 mg Q12HR JOIE Administration Sodium Chloride 1,000 mls @ 65 mls/hr 08/31/19 23:27 09/02/19 06:33 1/2 Normal Saline IV 1,000 mls .[id number] JOIE Administration Insulin Human Lispro 0 units 08/31/19 20:44 09/02/19 17:38 Humalog SC 3 unit .MILD SLIDING SCALE PRN Administration Mild Correctional Scale Levothyroxine Sodium 150 mcg 09/02/19 06:00 09/02/19 05:26 Synthroid PO 150 mcg 0600 JOIE Administration Lisinopril 10 mg 09/02/19 09:00 09/02/19 10:27 Zestril PO 10 mg DAILY JOIE Administration Mometasone Furoate/Formoterol Fumar 2 puff 09/01/19 18:30 09/02/19 19:17 Dulera 200 Mcg/5 Mcg Inhaler INH 2 puff BID-RT JOIE Administration Pregabalin 200 mg 09/01/19 21:00 09/02/19 10:26 Lyrica PO 200 mg BID JOIE Administration - Exam General Appearance: NAD, awake alert Neck: no JVD Heart: RRR, no murmur, no gallops Respiratory: CTAB, no wheezes, no rales, no ronchi Gastrointestinal: soft, non-tender, non-distended, normal bowel sounds Psychiatric: normal affect, normal behavior, A&O x 3 Hosp A/P - Plan #presyncope -orthostatic hypotension based on decrease in diastolic pressure -vasovagal component may be present, especially in context of urinary retention likely requiring increased intraabdominal pressure * -should improve with resolution of urinary retention, orthostatic hypotension , behavioral changes -MRI brain showing no mass lesions #lung mass #colon Ca -hisotry of colon cancer; CT abdomen showing rectal mass, iliac and periaortic lymphadenopathy; may be recurrent metastatic colon cancer -onc and PCCM recs appreciated -CEA; if elevated, may benefit from NM CEA scan; defer to oncology #gross hematuria (resolved) #urinary retention -bland sedimen on UA -may be prostate related or urinary bladder lesion -CT pelvis showing thickened bladder wall likely result of urinary retention -continue to follow; if additional hematuria, consult urology full code
[2019-09-02] MEDS: Atorvastatin Calcium 40 MG TAB PO SCH (20:49)
[2019-09-03] MEDS: Levothyroxine 150 MCG TAB PO SCH (05:02)
[2019-09-03] MEDS: Sodium Chloride 0.45% 1,000 ML IV SCH ×2 (05:03→19:56)
[2019-09-03 05:30] LABS: Anion Gap 12 mmol/L (10-20); BUN (Urea Nitrogen) 14 mg/dL (8.4-25.7); Calc. Creatinine Clearance 72 mL/min (70-130); Calcium 9.3 mg/dL (7.8-10.44); Carbon Dioxide 33 mmol/L (23-31); Chloride 98 mmol/L (98-107); Estimated GFR-MDRD 45; Glucose 176 mg/dL (83-110); Magnesium 1.9 mg/dL (1.6-2.6); Potassium 3.9 mmol/L (3.5-5.1); Sodium 139 mmol/L (136-145)
[2019-09-03] MEDS ORDERED: Magnesium 2 GM/50 ML 2 GM in Premix Bag 1 BAG IVPB SCH (06:45)
[2019-09-03] MEDS: Mometasone 200 MCG/Formoterol 5 MCG 120 PUFF INHALER INH SCH ×2 (07:08→18:58)
[2019-09-03] MEDS: Pregabalin 50 MG CAP PO SCH ×2 (08:06→21:38)
[2019-09-03] MEDS: Famotidine/PF 20 mg/2ml Vial SLOW IVP SCH ×2 (08:06→21:38)
[2019-09-03] MEDS: Lisinopril 10 MG TAB PO SCH (08:07)
[2019-09-03] MEDS: Carvedilol 6.25 MG TAB PO SCH ×2 (08:07→21:38)
[2019-09-03] MEDS: HumaLOG 300 UNITS/3 ML VIAL SC PRN (12:11)
--- NOTE | 2019-09-03 12:29 | PRG ---
DATE OF SERVICE: 09/03/2019 SUBJECTIVE: The patient is sitting up, he falls asleep quite easily, appears stable overnight. OBJECTIVE: VITAL SIGNS: Temperature 98.6, pulse 66, respirations 16, O2 saturation 98% on 2 L. Blood pressure 116/64. HEENT: Clear. NECK: No JVD. LUNGS: Clear. CARDIAC: S1 and S2. Regular. ABDOMEN: Soft. EXTREMITIES: No edema. LABORATORY DATA: Sodium 139, potassium 3.9, BUN 14, creatinine 1.5, glucose 176. ASSESSMENT: 1. Lung mass, likely indicative of cancer. 2. Chronic obstructive pulmonary disease. 3. Status post fall at home. PLAN: Eventual tissue biopsy. The patient's performance status is not good right now, so I am not sure he is the best candidate for bronchoscopy. I think a CT needle biopsy would be much better procedure for this patient given risk for anesthesia. Job ID: [id number]
--- NOTE | 2019-09-03 13:23 | PDOC.HOSPP ---
- Subjective Encounter Date: 09/03/19 Encounter Time: 08:00 Subjective: no overnight events. this morning, sitting comfortably and endorses difficulty walking. Per PT, will benefit from acute rehab. Pending placement. - Objective Vital Signs & Weight: Vital Signs (12 hours) Temp Pulse Resp BP Pulse Ox 09/03/19 12:14 97.7 F 60 16 117/55 L 99 09/03/19 08:00 98 09/03/19 07:52 98.6 F 66 16 116/64 98 09/03/19 04:59 98.2 F 54 L 18 117/55 L 94 L Weight Admit Weight 253 lb 6 oz Weight 253 lb 3.2 oz I&O: 09/02/19 09/03/19 09/04/19 06:59 06:59 06:59 Intake Total 1320 2256 Output Total 2350 1025 Balance -1030 1231 Result Diagrams: 09/01/19 03:55 09/03/19 04:45 Additional Labs: Accuchecks 09/03/19 09/03/19 09/02/19 10:54 05:30 20:31 POC Glucose 262 H 151 H 177 H 09/02/19 16:34 POC Glucose 226 H Hospitalist ROS - Review of Systems Constitutional: denies: fever, chills, sweats Respiratory: denies: cough, dry, shortness of breath Cardiovascular: denies: chest pain, palpitations, orthopnea Gastrointestinal: denies: nausea, vomiting, abdominal pain Genitourinary: denies: hematuria - Medication Medications: Active Medications Generic Name Dose Route Start Last Admin Trade Name Williamq PRN Reason Stop Dose Admin Atorvastatin Calcium 40 mg 09/01/19 21:00 09/02/19 20:49 Lipitor PO 40 mg HS JOIE Administration Carvedilol 6.25 mg 09/01/19 21:00 09/03/19 08:07 Coreg PO 6.25 mg BID JOIE Administration Famotidine 20 mg 08/31/19 21:00 09/03/19 08:06 Pepcid SLOW IVP 20 mg Q12HR JOIE Administration Sodium Chloride 1,000 mls @ 65 mls/hr 08/31/19 23:27 09/03/19 05:03 1/2 Normal Saline IV 1,000 mls .[id number] JOIE Administration Insulin Human Lispro 0 units 08/31/19 20:44 09/03/19 12:11 Humalog SC 4 unit .MILD SLIDING SCALE PRN Administration Mild Correctional Scale Levothyroxine Sodium 150 mcg 09/02/19 06:00 09/03/19 05:02 Synthroid PO 150 mcg 0600 JOIE Administration Lisinopril 10 mg 09/02/19 09:00 09/03/19 08:07 Zestril PO 10 mg DAILY JOIE Administration Mometasone Furoate/Formoterol Fumar 2 puff 09/01/19 18:30 09/03/19 07:08 Dulera 200 Mcg/5 Mcg Inhaler INH 2 puff BID-RT JOIE Administration Pregabalin 200 mg 09/01/19 21:00 09/03/19 08:06 Lyrica PO 200 mg BID JOIE Administration - Exam General Appearance: NAD, awake alert Heart: RRR, no murmur, no gallops, no rubs Respiratory: CTAB, no wheezes, no rales, no ronchi Gastrointestinal: soft, non-tender, non-distended, normal bowel sounds Gastrointestinal - other findings: colostomy intact and functional. Very concentrated urine in jones bag Extremities: 1+ LE edema Psychiatric: normal affect, normal behavior, A&O x 3 Hosp A/P - Plan #presyncope -orthostatic hypotension based on decrease in diastolic pressure -vasovagal component may be present, especially in context of urinary retention likely requiring increased intraabdominal pressure * -should improve with resolution of urinary retention, orthostatic hypotension , behavioral changes -MRI brain showing no mass lesions -repeat orthostats #lung mass #colon Ca -hisotry of colon cancer; CT abdomen showing rectal mass, iliac and periaortic lymphadenopathy; may be recurrent metastatic colon cancer -onc and PCCM recs appreciated -CEA wnl -CT-guided lung biopsy as per PCCM recs #gross hematuria (resolved) #urinary retention -bland sediment on UA -likely related to catheter insertion;hematuria didn't recur -CT pelvis showing thickened bladder wall likely result of urinary retention -continue to follow; if additional hematuria, consult urology full code
[2019-09-03] MEDS: HumaLOG 300 UNITS/3 ML VIAL SC SCH (18:31)
[2019-09-03] MEDS: Insulin Glargine 15 UNITS in Pre-Filled Syringe 1 EACH SC SCH (21:37)
[2019-09-03] MEDS: Atorvastatin Calcium 40 MG TAB PO SCH (21:38)
[2019-09-04 04:54] LABS: PTT 32.6 sec (22.9-36.1); Prothrombin Time 13.1 sec (12.0-14.7)
[2019-09-04 05:03] LABS: Anion Gap 10 mmol/L (10-20); BUN (Urea Nitrogen) 15 mg/dL (8.4-25.7); Calc. Creatinine Clearance 91 mL/min (70-130); Carbon Dioxide 31 mmol/L (23-31); Chloride 100 mmol/L (98-107); Estimated GFR-MDRD 59; Glucose 151 mg/dL (83-110); Potassium 3.8 mmol/L (3.5-5.1); Sodium 137 mmol/L (136-145)
[2019-09-04] MEDS: Levothyroxine 150 MCG TAB PO SCH (06:07)
[2019-09-04] MEDS: Mometasone 200 MCG/Formoterol 5 MCG 120 PUFF INHALER INH SCH ×2 (07:07→18:56)
--- NOTE | 2019-09-04 08:41 | PDOC.HOSPP ---
- Subjective Encounter Date: 09/04/19 Encounter Time: 15:00 Subjective: Patient seen and examined for gen weakness. Feels slightly better. No new complaints. No overnight events - Objective Vital Signs & Weight: Vital Signs (12 hours) Temp Pulse Resp BP BP Pulse Ox 09/04/19 07:27 99.4 F 68 16 130/59 L 92 L 09/04/19 03:32 98.4 F 61 23 H 131/60 92 L 09/03/19 21:38 129/58 L Weight Admit Weight 253 lb 6 oz Weight 253 lb 3.2 oz I&O: 09/03/19 09/04/19 09/05/19 06:59 06:59 06:59 Intake Total 2256 2086 Output Total 1025 1850 Balance 1231 236 Result Diagrams: 09/05/19 06:43 09/05/19 06:43 Additional Labs: Accuchecks 09/04/19 09/03/19 09/03/19 05:48 20:26 16:40 POC Glucose 143 H 173 H 160 H 09/03/19 10:54 POC Glucose 262 H EKG Reviewed by me: Yes (Tele SR) Hospitalist ROS - Review of Systems Respiratory: denies: cough, dry, shortness of breath, hemoptysis, SOB with excertion, pleuritic pain, sputum, wheezing, other Cardiovascular: denies: chest pain, palpitations, orthopnea, paroxysmal noc. dyspnea, edema, light headedness, other - Medication Medications: Active Medications Generic Name Dose Route Start Last Admin Trade Name Freq PRN Reason Stop Dose Admin Atorvastatin Calcium 40 mg 09/01/19 21:00 09/03/19 21:38 Lipitor PO 40 mg HS JOIE Administration Carvedilol 6.25 mg 09/01/19 21:00 09/03/19 21:38 Coreg PO 6.25 mg BID JOIE Administration Famotidine 20 mg 08/31/19 21:00 09/03/19 21:38 Pepcid SLOW IVP 20 mg Q12HR JOIE Administration Sodium Chloride 1,000 mls @ 65 mls/hr 08/31/19 23:27 09/03/19 19:56 1/2 Normal Saline IV 1,000 mls .[id number] JIOE Administration Insulin Glargine 15 units/ 0.15 mls @ 0 mls/hr 09/03/19 21:00 09/03/19 21:37 Miscellaneous Medication SC 0.15 mls HS JOIE Administration Insulin Human Lispro 5 units 09/03/19 17:00 09/03/19 18:31 Humalog SC Not Given TID-WM JOIE Levothyroxine Sodium 150 mcg 09/02/19 06:00 09/04/19 06:07 Synthroid PO 150 mcg 0600 JOIE Administration Lisinopril 10 mg 09/02/19 09:00 09/03/19 08:07 Zestril PO 10 mg DAILY JOIE Administration Mometasone Furoate/Formoterol Fumar 2 puff 09/01/19 18:30 09/04/19 07:07 Dulera 200 Mcg/5 Mcg Inhaler INH 2 puff BID-RT JOIE Administration Pregabalin 200 mg 09/01/19 21:00 09/03/19 21:38 Lyrica PO 200 mg BID JOIE Administration - Exam General Appearance: NAD Heart: RRR, no gallops Respiratory: no wheezes, no ronchi Gastrointestinal: non-tender, non-distended, normal bowel sounds Extremities: no cyanosis Neurological: no new deficit Psychiatric: normal affect, A&O x 3 Hosp A/P - Plan DVT proph w/heparin, DVT proph w/SCDs Gen weakness/fall/Rhabdomyolysis/Near syncope - prob due to Orthostatic hypotension Lung mass h/o Colon CA DM2 COPD/Chronic hypoxic resp failure on home O2 Obesity BMI 34.3 Gross hematuria - resolved HLD Urinary retention Physical deconditioning L3 lytic lesion PLAN: Cont gentle IV hydration - prob dc in AM Await Lung biopsy - scheduled for AM Cont PT/OT Cont current diabetic meds Cont other meds as above AM labs Await Rehab placement
[2019-09-04] MEDS: HumaLOG 300 UNITS/3 ML VIAL SC SCH ×3 (08:55→18:21)
[2019-09-04] MEDS: Famotidine/PF 20 mg/2ml Vial SLOW IVP SCH (08:56)
[2019-09-04] MEDS: Lisinopril 10 MG TAB PO SCH (08:57)
[2019-09-04] MEDS: Carvedilol 6.25 MG TAB PO SCH ×2 (08:57→22:59)
[2019-09-04] MEDS: Pregabalin 50 MG CAP PO SCH ×2 (09:44→22:59)
[2019-09-04] MEDS: HumaLOG 300 UNITS/3 ML VIAL SC PRN (11:46)
[2019-09-04] MEDS: Sodium Chloride 0.45% 1,000 ML IV SCH (22:59)
[2019-09-04] MEDS: Atorvastatin Calcium 40 MG TAB PO SCH (22:59)
[2019-09-04] MEDS: Insulin Glargine 15 UNITS in Pre-Filled Syringe 1 EACH SC SCH (23:00)
[2019-09-05] MEDS: Levothyroxine 150 MCG TAB PO SCH (05:47)
[2019-09-05 06:47] LABS: #Eosinphils 0.6 thou/uL (0.0-0.7); #Lymphocytes 1.2 thou/uL (1.20-3.40); #Monocytes 0.8 thou/uL (0.11-0.59); #Neutrophils 4.5 thou/uL (1.40-6.50); %Basophils 0.1 % (0.0-1.0); %Eosinophils 8.5 % (0.0-10.0); %Lymphocytes 17.2 % (21.0-51.0); %Monocytes 11.7 % (0.0-10.0); %Neutrophils 62.5 % (42.0-75.0); Hemoglobin 12.5 g/dL (14.0-18.0); Mean Corpuscular HGB CONC 30.3 g/dL (32.0-36.0); Mean Corpuscular Hemoglobin 27.4 pg (27.0-31.0); Mean Corpuscular Volume 90.5 fL (78.0-98.0); Mean Platelet Volume 10.1 fL (7.4-10.4); Platelet Count 180 thou/uL (130-400); RBC Distribution Width 15.4 % (11.5-14.5); Red Blood Cell (RBC) Count 4.57 mill/uL (4.70-6.10); White Blood Cell (WBC) Count 7.1 thou/uL (4.8-10.8)
[2019-09-05] MEDS: Mometasone 200 MCG/Formoterol 5 MCG 120 PUFF INHALER INH SCH ×2 (06:50→18:23)
[2019-09-05 07:09] LABS: Anion Gap 14 mmol/L (10-20); BUN (Urea Nitrogen) 15 mg/dL (8.4-25.7); CK (CPK) 82 U/L (30-200); Calc. Creatinine Clearance 85 mL/min (70-130); Calcium 9.2 mg/dL (7.8-10.44); Carbon Dioxide 29 mmol/L (23-31); Chloride 99 mmol/L (98-107); Estimated GFR-MDRD 54; Glucose 123 mg/dL (83-110); Potassium 3.9 mmol/L (3.5-5.1); Sodium 138 mmol/L (136-145)
[2019-09-05] MEDS: HumaLOG 300 UNITS/3 ML VIAL SC SCH ×3 (08:51→17:17)
[2019-09-05] MEDS: Pregabalin 50 MG CAP PO SCH ×2 (08:52→21:47)
[2019-09-05] MEDS: Lisinopril 10 MG TAB PO SCH (08:53)
[2019-09-05] MEDS: Carvedilol 6.25 MG TAB PO SCH ×2 (08:53→21:47)
[2019-09-05] MEDS: Heparin 5,000 UNITS/ML VIAL SC SCH ×2 (15:16→21:47)
--- NOTE | 2019-09-05 16:16 | PDOC.HOSPP ---
- Subjective Encounter Date: 09/05/19 Encounter Time: 14:00 Subjective: Patient seen and examined for gen weaknes. No new complaints. No overnight events - Objective Vital Signs & Weight: Vital Signs (12 hours) Temp Pulse Resp BP BP BP Pulse Ox 09/05/19 15:37 98.1 F 56 L 16 123/56 L 94 L 09/05/19 11:40 97.9 F 60 17 124/58 L 92 L 09/05/19 08:53 121/56 L 09/05/19 08:50 94 L 09/05/19 07:22 56 L 16 121/56 L 09/05/19 07:18 97.6 F 56 L 16 121/56 L 94 L Weight Admit Weight 253 lb 6 oz Weight 253 lb 3.2 oz I&O: 09/04/19 09/05/19 09/06/19 06:59 06:59 06:59 Intake Total 2086 2110 360 Output Total 1850 1450 Balance 236 660 360 Result Diagrams: 09/05/19 06:43 09/05/19 06:43 Additional Labs: Accuchecks 09/05/19 09/05/19 09/04/19 11:10 05:58 21:00 POC Glucose 178 H 141 H 123 H 09/04/19 17:01 POC Glucose 113 H EKG Reviewed by me: Yes (Tele SR) Hospitalist ROS - Review of Systems Respiratory: denies: cough, dry, shortness of breath, hemoptysis, SOB with excertion, pleuritic pain, sputum, wheezing, other Cardiovascular: denies: chest pain, palpitations, orthopnea, paroxysmal noc. dyspnea, edema, light headedness, other - Medication Medications: Active Medications Generic Name Dose Route Start Last Admin Trade Name Freq PRN Reason Stop Dose Admin Atorvastatin Calcium 40 mg 09/01/19 21:00 09/04/19 22:59 Lipitor PO 40 mg HS JOIE Administration Carvedilol 6.25 mg 09/01/19 21:00 09/05/19 08:53 Coreg PO 6.25 mg BID JOIE Administration Heparin Sodium (Porcine) 5,000 units 09/05/19 15:00 09/05/19 15:16 Heparin SC 5,000 units TID JOIE Administration Insulin Glargine 15 units/ 0.15 mls @ 0 mls/hr 09/03/19 21:00 09/04/19 23:00 Miscellaneous Medication SC 0.15 mls HS JOIE Administration Insulin Human Lispro 5 units 09/03/19 17:00 09/05/19 11:46 Humalog SC 5 unit TID-WM JOIE Administration Insulin Human Lispro 0 units 09/03/19 13:34 09/04/19 11:46 Humalog SC 3 unit .MILD SLIDING SCALE PRN Administration Mild Correctional Scale Levothyroxine Sodium 150 mcg 09/02/19 06:00 09/05/19 05:47 Synthroid PO 150 mcg 0600 JOIE Administration Lisinopril 10 mg 09/02/19 09:00 09/05/19 08:53 Zestril PO 10 mg DAILY JOIE Administration Mometasone Furoate/Formoterol Fumar 2 puff 09/01/19 18:30 09/05/19 06:50 Dulera 200 Mcg/5 Mcg Inhaler INH 2 puff BID-RT JOIE Administration Pantoprazole Sodium 40 mg 09/05/19 09:00 09/05/19 08:54 Protonix PO 40 mg DAILY JOIE Administration Pregabalin 200 mg 09/01/19 21:00 09/05/19 08:52 Lyrica PO 200 mg BID JOIE Administration - Exam General Appearance: NAD Heart: RRR, no gallops Respiratory: no wheezes, rhonchi Gastrointestinal: non-tender, non-distended, normal bowel sounds Extremities: no cyanosis, no clubbing Hosp A/P - Plan jones catheter, PT/OT, DVT proph w/heparin, DVT proph w/SCDs Gen weakness/fall/Rhabdomyolysis/Near syncope - prob due to Orthostatic hypotension Lung mass h/o Colon CA DM2- on slding scale COPD/Chronic hypoxic resp failure on home O2 Obesity BMI 34.3 Gross hematuria - resolved HLD Urinary retention -jones placed Physical deconditioning L3 lytic lesion PLAN: IVF dced Await Placement Lung biopsy scheduled for Thursday (7 days off Plavix) Cont PT/OT Cont other meds as above AM labs Urology f/u as outpt
[2019-09-05] MEDS: HumaLOG 300 UNITS/3 ML VIAL SC PRN (17:18)
[2019-09-05] MEDS ORDERED: Enoxaparin Sodium 40 MG/0.4 ML SYRINGE SC SCH (21:00)
[2019-09-05] MEDS: Atorvastatin Calcium 40 MG TAB PO SCH (21:49)
[2019-09-05] MEDS: Insulin Glargine 15 UNITS in Pre-Filled Syringe 1 EACH SC SCH (21:49)
[2019-09-06 04:40] LABS: #Eosinphils 0.6 thou/uL (0.0-0.7); #Lymphocytes 1.2 thou/uL (1.20-3.40); #Monocytes 0.7 thou/uL (0.11-0.59); #Neutrophils 4.5 thou/uL (1.40-6.50); %Basophils 0.5 % (0.0-1.0); %Eosinophils 8.3 % (0.0-10.0); %Lymphocytes 17.3 % (21.0-51.0); %Neutrophils 63.9 % (42.0-75.0); Hemoglobin 11.4 g/dL (14.0-18.0); Mean Corpuscular HGB CONC 30.7 g/dL (32.0-36.0); Mean Corpuscular Hemoglobin 27.4 pg (27.0-31.0); Mean Corpuscular Volume 89.2 fL (78.0-98.0); Mean Platelet Volume 10.8 fL (7.4-10.4); Platelet Count 192 thou/uL (130-400); RBC Distribution Width 15.2 % (11.5-14.5); Red Blood Cell (RBC) Count 4.15 mill/uL (4.70-6.10); White Blood Cell (WBC) Count 7.1 thou/uL (4.8-10.8)
[2019-09-06 04:59] LABS: Albumin 3.1 g/dL (3.4-4.8); Anion Gap 9 mmol/L (10-20); BUN (Urea Nitrogen) 21 mg/dL (8.4-25.7); BUN/Creatinine Ratio 14.48; Calc. Creatinine Clearance 76 mL/min (70-130); Calcium 9.4 mg/dL (7.8-10.44); Carbon Dioxide 34 mmol/L (23-31); Chloride 98 mmol/L (98-107); Estimated GFR-MDRD 48; Glucose 124 mg/dL (83-110); Phosphorus 3.7 mg/dL (2.3-4.7); Potassium 4.1 mmol/L (3.5-5.1); Sodium 137 mmol/L (136-145)
[2019-09-06] MEDS: Levothyroxine 150 MCG TAB PO SCH (05:37)
[2019-09-06] MEDS: Mometasone 200 MCG/Formoterol 5 MCG 120 PUFF INHALER INH SCH ×2 (06:58→19:59)
--- NOTE | 2019-09-06 08:47 | PDOC.HOSPP ---
- Subjective Encounter Date: 09/06/19 Encounter Time: 12:15 Subjective: Mr. Oleary is seen for follow up of generalized weakness post fall about a week ago. Patient has been able to work with PT. He states that he is ready to go home. - Objective Vital Signs & Weight: Vital Signs (12 hours) Temp Pulse Resp BP BP Pulse Ox 09/06/19 07:00 92 L 09/06/19 06:58 53 L 16 92 L 09/06/19 03:35 98.1 F 52 L 16 108/53 L 98 09/05/19 21:47 151/70 H Weight Admit Weight 253 lb 6 oz Weight 253 lb 3.2 oz I&O: 09/05/19 09/06/19 09/07/19 06:59 06:59 06:59 Intake Total 2110 820 Output Total 1450 900 Balance 660 -80 Result Diagrams: 09/06/19 03:56 09/06/19 03:56 Additional Labs: Accuchecks 09/06/19 09/05/19 09/05/19 05:40 21:59 17:01 POC Glucose 117 H 150 H 205 H 09/05/19 11:10 POC Glucose 178 H Hospitalist ROS - Review of Systems Respiratory: denies: cough, dry, shortness of breath, hemoptysis, SOB with excertion, pleuritic pain, sputum, wheezing, other Cardiovascular: denies: chest pain, palpitations, orthopnea, paroxysmal noc. dyspnea, edema, light headedness, other - Medication Medications: Active Medications Generic Name Dose Route Start Last Admin Trade Name Freq PRN Reason Stop Dose Admin Atorvastatin Calcium 40 mg 09/01/19 21:00 09/05/19 21:49 Lipitor PO 40 mg HS JOIE Administration Carvedilol 6.25 mg 09/01/19 21:00 09/05/19 21:47 Coreg PO 6.25 mg BID JOIE Administration Heparin Sodium (Porcine) 5,000 units 09/05/19 15:00 09/05/19 21:47 Heparin SC 09/06/19 12:00 5,000 units TID JOIE Administration Insulin Glargine 15 units/ 0.15 mls @ 0 mls/hr 09/03/19 21:00 09/05/19 21:49 Miscellaneous Medication SC 0.15 mls HS JOIE Administration Insulin Human Lispro 5 units 09/03/19 17:00 09/05/19 17:17 Humalog SC 5 unit TID-WM JOIE Administration Insulin Human Lispro 0 units 09/03/19 13:34 09/05/19 17:18 Humalog SC 3 unit .MILD SLIDING SCALE PRN Administration Mild Correctional Scale Levothyroxine Sodium 150 mcg 09/02/19 06:00 09/06/19 05:37 Synthroid PO 150 mcg 0600 JOIE Administration Lisinopril 10 mg 09/02/19 09:00 09/05/19 08:53 Zestril PO 10 mg DAILY JOIE Administration Mometasone Furoate/Formoterol Fumar 2 puff 09/01/19 18:30 09/06/19 06:58 Dulera 200 Mcg/5 Mcg Inhaler INH 2 puff BID-RT JOIE Administration Pantoprazole Sodium 40 mg 09/05/19 09:00 09/05/19 08:54 Protonix PO 40 mg DAILY JOIE Administration Pregabalin 200 mg 09/01/19 21:00 09/05/19 21:47 Lyrica PO 200 mg BID JOIE Administration - Exam General Appearance: NAD, awake alert Heart: RRR Respiratory: CTAB Gastrointestinal: soft, non-tender, normal bowel sounds Extremities: no cyanosis, 2+ LE edema Extremities - other findings: hemosiderin changes noted to his bilateral LE Psychiatric: normal affect, A&O x 3 Hosp A/P - Plan Gen weakness/fall/Rhabdomyolysis/Near syncope - prob due to Orthostatic hypotension Lung mass h/o Colon CA DM2- on slding scale COPD/Chronic hypoxic resp failure on home O2 - ABG shows CO2 of 56.8 Obesity BMI 34.3 Gross hematuria - resolved HLD Urinary retention -jones catheter in place Physical deconditioning L3 lytic lesion PLAN: Await Placement Lung biopsy scheduled for Thursday (7 days off Plavix) Cont PT/OT Cont other meds as above AM labs Urology/NSG f/u as outpt
[2019-09-06] MEDS: Heparin 5,000 UNITS/ML VIAL SC SCH (08:55)
[2019-09-06] MEDS: Pregabalin 50 MG CAP PO SCH ×2 (08:56→21:54)
[2019-09-06] MEDS: HumaLOG 300 UNITS/3 ML VIAL SC SCH ×3 (08:56→17:37)
[2019-09-06] MEDS: Lisinopril 10 MG TAB PO SCH (08:57)
[2019-09-06] MEDS: Carvedilol 6.25 MG TAB PO SCH ×2 (08:57→21:55)
[2019-09-06 10:27] LABS: Actual Bicarbonate (HCO3a) 31.6 mEq/L (22-28); Base Excess (BEa) 4.9 mEq/L (-2.0 to +3.0); CO2 Tension 56.8 mmHg (35.0-45.0); Calcium, Ionized (arterial) 1.22 mmol/L (1.12-1.30); Carboxyhemoglobin (COHb) 0.5 gm% (0.0-3.0); Hemoglobin (Hb) 12.1 g/dL (14.0-18.0); O2 Tension (PaO2), arterial 67.1 mmHg (> 70.0); Potassium - ABG Lab 3.95 mmol/L (3.70-5.30); pH, Arterial 7.36 (7.35-7.45)
[2019-09-06 10:29] LABS: Puncture Site RB
[2019-09-06] MEDS: Insulin Glargine 15 UNITS in Pre-Filled Syringe 1 EACH SC SCH (21:54)
[2019-09-06] MEDS: Atorvastatin Calcium 40 MG TAB PO SCH (21:57)
[2019-09-07 04:25] LABS: #Eosinphils 0.4 thou/uL (0.0-0.7); #Lymphocytes 1.2 thou/uL (1.20-3.40); #Monocytes 0.7 thou/uL (0.11-0.59); #Neutrophils 4.6 thou/uL (1.40-6.50); %Basophils 0.1 % (0.0-1.0); %Eosinophils 5.7 % (0.0-10.0); %Lymphocytes 17.2 % (21.0-51.0); %Monocytes 10.1 % (0.0-10.0); %Neutrophils 66.9 % (42.0-75.0); Hemoglobin 11.6 g/dL (14.0-18.0); Mean Corpuscular HGB CONC 30.3 g/dL (32.0-36.0); Mean Corpuscular Hemoglobin 26.9 pg (27.0-31.0); Mean Corpuscular Volume 88.7 fL (78.0-98.0); Mean Platelet Volume 10.6 fL (7.4-10.4); Platelet Count 199 thou/uL (130-400); RBC Distribution Width 15.3 % (11.5-14.5); Red Blood Cell (RBC) Count 4.31 mill/uL (4.70-6.10); White Blood Cell (WBC) Count 6.9 thou/uL (4.8-10.8)
[2019-09-07 04:58] LABS: Albumin 3.2 g/dL (3.4-4.8); Anion Gap 15 mmol/L (10-20); BUN (Urea Nitrogen) 22 mg/dL (8.4-25.7); BUN/Creatinine Ratio 16.42; Calc. Creatinine Clearance 82 mL/min (70-130); Calcium 9.6 mg/dL (7.8-10.44); Carbon Dioxide 28 mmol/L (23-31); Chloride 100 mmol/L (98-107); Estimated GFR-MDRD 53; Glucose 120 mg/dL (83-110); Phosphorus 2.6 mg/dL (2.3-4.7); Potassium 4.6 mmol/L (3.5-5.1); Sodium 138 mmol/L (136-145)
[2019-09-07] MEDS: Levothyroxine 150 MCG TAB PO SCH (05:58)
[2019-09-07] MEDS: Mometasone 200 MCG/Formoterol 5 MCG 120 PUFF INHALER INH SCH ×2 (06:53→19:16)
--- NOTE | 2019-09-07 07:56 | PDOC.HOSPP ---
- Subjective Encounter Date: 09/07/19 Encounter Time: 13:07 Subjective: Mr. Oleary is seen today for follow up of generalized weakness. He underwent a lung biopsy tody with IR. He is sitting comfortably in bed eating his lunch. He denies any dizziness, chest pain, SOB, cough, abdominal pain. - Objective Vital Signs & Weight: Vital Signs (12 hours) Temp Pulse Resp BP BP BP BP 09/07/19 06:57 09/07/19 06:53 70 20 09/07/19 05:55 98.7 F 69 16 161/99 H 135/62 160/70 H 09/06/19 21:55 143/62 H Pulse Ox 09/07/19 06:57 92 L 09/07/19 06:53 92 L 09/07/19 05:55 94 L 09/06/19 21:55 Weight Admit Weight 253 lb 6 oz Weight 253 lb 3.2 oz I&O: 09/06/19 09/07/19 09/08/19 06:59 06:59 06:59 Intake Total 820 1160 Output Total 900 2290 Balance -80 -1130 Result Diagrams: 09/07/19 03:54 09/07/19 03:54 Additional Labs: Accuchecks 09/07/19 09/06/19 09/06/19 06:32 21:10 17:08 POC Glucose 135 H 152 H 132 H 09/06/19 10:38 POC Glucose 184 H Hospitalist ROS - Review of Systems Respiratory: denies: cough, dry, shortness of breath, hemoptysis, SOB with excertion, pleuritic pain, sputum, wheezing, other Cardiovascular: denies: chest pain, palpitations, orthopnea, paroxysmal noc. dyspnea, edema, light headedness, other - Medication Medications: Active Medications Generic Name Dose Route Start Last Admin Trade Name Freq PRN Reason Stop Dose Admin Atorvastatin Calcium 40 mg 09/01/19 21:00 09/06/19 21:57 Lipitor PO 40 mg HS JOIE Administration Carvedilol 6.25 mg 09/01/19 21:00 09/06/19 21:55 Coreg PO 6.25 mg BID JOIE Administration Insulin Glargine 15 units/ 0.15 mls @ 0 mls/hr 09/03/19 21:00 09/06/19 21:54 Miscellaneous Medication SC 0.15 mls HS JOIE Administration Insulin Human Lispro 5 units 09/03/19 17:00 09/06/19 17:37 Humalog SC 5 unit TID-WM JOIE Administration Insulin Human Lispro 0 units 09/03/19 13:34 09/05/19 17:18 Humalog SC 3 unit .MILD SLIDING SCALE PRN Administration Mild Correctional Scale Levothyroxine Sodium 150 mcg 09/02/19 06:00 09/07/19 05:58 Synthroid PO 150 mcg 0600 JOIE Administration Lisinopril 10 mg 09/02/19 09:00 09/06/19 08:57 Zestril PO 10 mg DAILY JOIE Administration Mometasone Furoate/Formoterol Fumar 2 puff 09/01/19 18:30 09/07/19 06:53 Dulera 200 Mcg/5 Mcg Inhaler INH 2 puff BID-RT JOIE Administration Pantoprazole Sodium 40 mg 09/05/19 09:00 09/06/19 08:57 Protonix PO 40 mg DAILY JOIE Administration Pregabalin 200 mg 09/01/19 21:00 09/06/19 21:54 Lyrica PO 200 mg BID JOIE Administration Sodium Chloride 10 ml 08/31/19 20:17 09/06/19 21:57 Flush - Normal Saline IVF 10 ml Q12HR PRN Administration Saline Flush - Exam General Appearance: NAD, awake alert ENT: normocephalic atraumatic Heart: RRR, no murmur, no gallops, no rubs Respiratory: CTAB Gastrointestinal: soft, non-tender, normal bowel sounds Extremities: no cyanosis, 1+ LE edema Psychiatric: normal affect, normal behavior, A&O x 3 Hosp A/P - Plan Gen weakness/fall/Rhabdomyolysis/Near syncope - prob due to Orthostatic hypotension Lung mass h/o Colon CA DM2- on slding scale COPD/Chronic hypoxic resp failure on home O2 Obesity BMI 34.3 Gross hematuria - resolved HLD Urinary retention -jones placed Physical deconditioning L3 lytic lesion PLAN: Orthostatic vitals positive today Will cont Coreg Will change Lisinopril to 5 mg HS Await Placement Lung biopsy today Resume Plavix after 48 hr post biopsy - Will confirm with radiology Cont PT/OT Cont other meds as above AM labs Urology/NSG f/u as outpt
[2019-09-07] MEDS ORDERED: Clopidogrel Bisulfate 75 MG TAB PO SCH (09:00)
[2019-09-07] MEDS ORDERED: Lisinopril 5 MG TAB PO SCH ×2 (09:00→21:00)
[2019-09-07] MEDS: Carvedilol 6.25 MG TAB PO SCH ×2 (09:14→20:58)
[2019-09-07] MEDS: Pregabalin 50 MG CAP PO SCH ×2 (09:15→20:57)
[2019-09-07] MEDS: HumaLOG 300 UNITS/3 ML VIAL SC SCH ×3 (09:15→17:34)
--- NOTE | 2019-09-07 10:19 | PRG ---
DATE OF SERVICE: 09/07/2019 SUBJECTIVE: Darrin Oleary is re-evaluated. OBJECTIVE: VITAL SIGNS: He is afebrile, heart rate in the 70s, blood pressure 143/62, respiratory rate in the teens. GENERAL: It says on the board in his room that he walked 182 feet. LUNGS: Unchanged HEART: Unchanged. ABDOMEN: Unchanged. He is not wheezing. LABORATORY DATA: Blood gas yesterday showed a pH 7.36, pCO2 of 50, pO2 of 67 on 2 L a minute. IMPRESSION: 1. Deconditioning and poor functional status prior to this admission. 2. Status post fall with just great knees. No fractures. No evidence of intracranial metastasis. 3. Lung mass is likely malignant. If there is any delay, I will let him getting into rehab. We ought to go ahead and proceed with a biopsy since it will probably take 4 to 5 days for his pathology to come back. 4. He is stable as he will be for biopsy. I have recommended to the radiologist that they make sure he has been off his Plavix for a week while they proceed with his biopsy. We will continue to follow loosely. Job ID: [id number]
[2019-09-07] MEDS ORDERED: Midazolam HCl 2 mg/2 ml Vial ONE (11:01)
[2019-09-07] MEDS ORDERED: Fentanyl 100 MCG/2 ML VIAL ONE (11:01)
[2019-09-07] MEDS ORDERED: Sodium Bicarbonate 2.5 MEQ/5 ML VIAL ONE (11:01)
--- NOTE | 2019-09-07 11:17 | PDOC.MOPN ---
Interval History: Sitting in chair, no distress. Denies pain. - Vital Signs Vital Signs: Vital Signs (12 hours) Temp Pulse Resp BP BP BP Pulse Ox 09/07/19 09:10 97.9 F 65 20 138/63 92 L 09/07/19 06:57 92 L 09/07/19 06:53 70 20 92 L 09/07/19 05:55 98.7 F 69 16 161/99 H 135/62 160/70 H 94 L Weight Admit Weight 253 lb 6 oz Weight 253 lb 3.2 oz - Physical Exam General: Alert, No acute distress Lungs: Other (wheeze) Cardiovascular: Regular rate Abdomen: Normal bowel sounds Neurological: Normal speech Psych/Mental Status: Other (confused at times) - Labs Result Diagrams: 09/07/19 03:54 09/07/19 03:54 Lab results: Laboratory Results - last 24 hr 09/07/19 10:39: POC Glucose 180 H 09/07/19 06:32: POC Glucose 135 H 09/07/19 03:54: WBC 6.9, RBC 4.31 L, Hgb 11.6 L, Hct 38.2 L, MCV 88.7, MCH 26.9 L, MCHC 30.3 L, RDW 15.3 H, Plt Count 199, MPV 10.6 H, Neutrophils % 66.9, Lymphocytes % 17.2 L, Monocytes % 10.1 H, Eosinophils % 5.7, Basophils % 0.1, Neutrophils # 4.6, Lymphocytes # 1.2, Monocytes # 0.7 H, Eosinophils # 0.4, Basophils # 0.0 09/07/19 03:54: Sodium 138, Potassium 4.6, Chloride 100, Carbon Dioxide 28, Anion Gap 15, BUN 22, Creatinine 1.34 H, Estimated GFR (MDRD) 53, BUN/ Creatinine Ratio 16.42, Glucose 120 H, Calcium 9.6, Phosphorus 2.6, Albumin 3.2 L 09/06/19 21:10: POC Glucose 152 H 09/06/19 17:08: POC Glucose 132 H Status: lab reviewed by me A/P - Problem (1) Lung mass Current Visit: Yes Code(s): R91.8 - OTHER NONSPECIFIC ABNORMAL FINDING OF LUNG FIELD Status: Acute (2) History of rectal cancer Current Visit: Yes Code(s): Z85.048 - PRSNL HX OF MALIG NEOPLM OF RECTUM, RECTOSIG JUNCT, AND ANUS Status: Acute - Plan Plan: 1. biopsy today with IR 2. await placement 3. Follow-up in outpt setting to discuss treatment options.
--- NOTE | 2019-09-07 13:11 | RAD ---
Chest 2 views inspiratory expiratory HISTORY: Lung mass. Biopsy. FINDINGS: Cardiac silhouette is magnified by projection. Right upper and lower lobe masses are appare nt. Mediastinum is midline with aortic calcification and a right subclavian Port-A-Cath. No evidence of postbiopsy pneumothorax on this exam.
--- NOTE | 2019-09-07 13:47 | CT ---
CT-guided right upper lobe lung mass biopsy HISTORY: Right lung masses. FINDINGS: After explaining the procedure and answering all questions, limited CT imaging of the upper chest was performed. Sterile technique, buffered local anesthesia, CT guidance, and an anterior approach were used to care fully advance a 19-gauge trocar needle to the right suprahilar mass. Position confirmed with CT. A total of 8 20-gauge core biopsy specimens were obtained and submitted to Dr. Mayers from pathology w ho confirmed specimen adequacy. Needle was removed. Minimal right apical pneumothorax on CT images. Not visible on chest radiography. Patient tolerated the procedure well and was returned in unchanged condition. IMPRESSION : Technically successful CT-guided right upper lobe lung mass biopsy. Pathology is pending.
--- NOTE | 2019-09-07 14:25 | RAD ---
Chest 2 views inspiratory and expiratory HISTORY:: Lung mass. Biopsy. COMPARISON: Earlier exam on same date. FINDINGS: Lungs remain well-inflated. Right lung mass is again demonstrated. No interval change. IMPRESSION : No evidence of postbiopsy pneumothorax.
[2019-09-07] MEDS: Insulin Glargine 15 UNITS in Pre-Filled Syringe 1 EACH SC SCH (20:56)
[2019-09-07] MEDS: Atorvastatin Calcium 40 MG TAB PO SCH (20:58)
[2019-09-08 04:47] LABS: #Eosinphils 0.3 thou/uL (0.0-0.7); #Lymphocytes 1.3 thou/uL (1.20-3.40); #Monocytes 0.9 thou/uL (0.11-0.59); #Neutrophils 4.3 thou/uL (1.40-6.50); %Basophils 0.4 % (0.0-1.0); %Eosinophils 3.7 % (0.0-10.0); %Lymphocytes 19.3 % (21.0-51.0); %Monocytes 12.5 % (0.0-10.0); Hemoglobin 12.1 g/dL (14.0-18.0); Mean Corpuscular HGB CONC 30.2 g/dL (32.0-36.0); Mean Corpuscular Hemoglobin 26.9 pg (27.0-31.0); Mean Corpuscular Volume 89.1 fL (78.0-98.0); Mean Platelet Volume 10.5 fL (7.4-10.4); Platelet Count 211 thou/uL (130-400); RBC Distribution Width 15.1 % (11.5-14.5); White Blood Cell (WBC) Count 6.8 thou/uL (4.8-10.8)
[2019-09-08 05:13] LABS: Albumin 3.4 g/dL (3.4-4.8); Anion Gap 12 mmol/L (10-20); BUN (Urea Nitrogen) 20 mg/dL (8.4-25.7); BUN/Creatinine Ratio 14.18; Calc. Creatinine Clearance 78 mL/min (70-130); Calcium 10.1 mg/dL (7.8-10.44); Carbon Dioxide 36 mmol/L (23-31); Chloride 97 mmol/L (98-107); Estimated GFR-MDRD 50; Glucose 106 mg/dL (83-110); Potassium 4.5 mmol/L (3.5-5.1); Sodium 140 mmol/L (136-145)
[2019-09-08] MEDS: Levothyroxine 150 MCG TAB PO SCH (05:48)
[2019-09-08] MEDS: Mometasone 200 MCG/Formoterol 5 MCG 120 PUFF INHALER INH SCH ×2 (07:56→18:18)
[2019-09-08] MEDS: Pregabalin 50 MG CAP PO SCH (09:04)
[2019-09-08] MEDS: Carvedilol 6.25 MG TAB PO SCH (09:04)
[2019-09-08] MEDS: HumaLOG 300 UNITS/3 ML VIAL SC SCH ×3 (09:05→17:13)
--- NOTE | 2019-09-08 16:05 | PDOC.HOSPP ---
- Subjective Encounter Date: 09/08/19 Encounter Time: 08:30 Subjective: Patient seen and examined for gen weakness. Feels better. No new complaints. No overnight events - Objective Vital Signs & Weight: Vital Signs (12 hours) Temp Pulse Resp BP BP BP Pulse Ox 09/08/19 11:57 98.3 F 76 20 97/50 L 95 09/08/19 07:56 60 16 94 L 09/08/19 07:55 94 L 09/08/19 07:53 99 F 60 18 117/57 L 94 L 09/08/19 05:00 155/80 H 118/64 150/67 H Weight Admit Weight 253 lb 6 oz Weight 253 lb 3.2 oz I&O: 09/07/19 09/08/19 09/09/19 06:59 06:59 06:59 Intake Total 1160 1680 Output Total 2290 4600 Balance -9000 -2820 Result Diagrams: 09/08/19 04:31 09/08/19 04:31 Additional Labs: Accuchecks 09/08/19 09/08/19 09/07/19 11:02 05:46 20:20 POC Glucose 145 H 118 H 162 H 09/07/19 16:49 POC Glucose 160 H EKG Reviewed by me: Yes (Tele SR) Hospitalist ROS - Review of Systems Cardiovascular: denies: chest pain, palpitations, orthopnea, paroxysmal noc. dyspnea, edema, light headedness, other Gastrointestinal: denies: nausea, vomiting, abdominal pain, diarrhea, constipation, melena, hematochezia, other - Medication Medications: Active Medications Generic Name Dose Route Start Last Admin Trade Name Abilio PRN Reason Stop Dose Admin Atorvastatin Calcium 40 mg 09/01/19 21:00 09/07/19 20:58 Lipitor PO 40 mg HS JOIE Administration Carvedilol 6.25 mg 09/01/19 21:00 09/08/19 09:04 Coreg PO 6.25 mg BID JOIE Administration Insulin Glargine 15 units/ 0.15 mls @ 0 mls/hr 09/03/19 21:00 09/07/19 20:56 Miscellaneous Medication SC 0.15 mls HS JOIE Administration Insulin Human Lispro 5 units 09/03/19 17:00 09/08/19 12:06 Humalog SC 5 unit TID-WM JOIE Administration Insulin Human Lispro 0 units 09/03/19 13:34 09/05/19 17:18 Humalog SC 3 unit .MILD SLIDING SCALE PRN Administration Mild Correctional Scale Levothyroxine Sodium 150 mcg 09/02/19 06:00 09/08/19 05:48 Synthroid PO 150 mcg 0600 JOIE Administration Lisinopril 5 mg 09/07/19 21:00 09/07/19 20:58 Zestril PO 5 mg HS JOIE Administration Mometasone Furoate/Formoterol Fumar 2 puff 09/01/19 18:30 09/08/19 07:56 Dulera 200 Mcg/5 Mcg Inhaler INH 2 puff BID-RT JOIE Administration Pantoprazole Sodium 40 mg 09/05/19 09:00 09/08/19 09:04 Protonix PO 40 mg DAILY JOIE Administration Pregabalin 200 mg 09/01/19 21:00 09/08/19 09:04 Lyrica PO 200 mg BID JOIE Administration Sodium Chloride 10 ml 08/31/19 20:17 09/06/19 21:57 Flush - Normal Saline IVF 10 ml Q12HR PRN Administration Saline Flush - Exam General Appearance: NAD Heart: RRR, no gallops Respiratory: no wheezes, normal chest expansion Gastrointestinal: non-tender, non-distended Extremities: no cyanosis, no clubbing Neurological: no new deficit Psychiatric: normal affect, A&O x 3 Hosp A/P - Plan DVT proph w/SCDs Gen weakness/fall/Rhabdomyolysis/Near syncope - prob due to Orthostatic hypotension Lung mass -s/p lung biopsy h/o Colon CA DM2- on slding scale COPD/Chronic hypoxic resp failure on home O2 Obesity BMI 34.3 Gross hematuria - resolved HLD Urinary retention -jones dced Physical deconditioning L3 lytic lesion PLAN: Reduce Coreg to 3.125 mg BID Reduce Lisinopril to 2.5 mg HS Resume Plavix in AM Cont PT/OT Cont other meds as above AM labs Urology/NSG f/u as outpt DC later today if stable and voiding
--- NOTE | 2019-09-08 16:20 | PDOC.EVN ---
Event Note - Event Note Event Note: RN reported low BP with increased somnolence. Will hold dc today. Will also hold BP meds
[2019-09-08] MEDS: Atorvastatin Calcium 40 MG TAB PO SCH (20:57)
[2019-09-08] MEDS: Pregabalin 75 MG CAP PO SCH (20:57)
[2019-09-08] MEDS: Insulin Glargine 15 UNITS in Pre-Filled Syringe 1 EACH SC SCH (20:57)
--- NOTE | 2019-09-08 23:18 | PRG ---
DATE OF SERVICE: 09/08/2019 SUBJECTIVE: Darrin Oleary was evaluated this morning. He is awaiting his CT-guided lung biopsy. OBJECTIVE: VITAL SIGNS: He is afebrile. Vitals signs have been stable. LUNGS: Free of wheezes. HEART: Regular rhythm. ASSESSMENT: 1. Bronchogenic carcinoma, most likely. 2. Chronic obstructive pulmonary disease, unlikely to be a candidate for any type of surgery. 3. Extreme deconditioning. After biopsy and once we have results, oncology can begin planning. He will need to get a little stronger before he can go to any type of treatment. Job ID: [id number]
[2019-09-09 04:47] LABS: #Eosinphils 0.3 thou/uL (0.0-0.7); #Lymphocytes 1.2 thou/uL (1.20-3.40); #Monocytes 0.7 thou/uL (0.11-0.59); #Neutrophils 4.2 thou/uL (1.40-6.50); %Basophils 0.3 % (0.0-1.0); %Eosinophils 4.5 % (0.0-10.0); %Lymphocytes 18.1 % (21.0-51.0); %Monocytes 11.5 % (0.0-10.0); %Neutrophils 65.7 % (42.0-75.0); Mean Corpuscular HGB CONC 30.1 g/dL (32.0-36.0); Mean Corpuscular Hemoglobin 26.7 pg (27.0-31.0); Mean Corpuscular Volume 88.8 fL (78.0-98.0); Mean Platelet Volume 10.4 fL (7.4-10.4); Platelet Count 194 thou/uL (130-400); RBC Distribution Width 15.1 % (11.5-14.5); Red Blood Cell (RBC) Count 4.11 mill/uL (4.70-6.10); White Blood Cell (WBC) Count 6.4 thou/uL (4.8-10.8)
[2019-09-09 05:04] LABS: Anion Gap 10 mmol/L (10-20); BUN (Urea Nitrogen) 27 mg/dL (8.4-25.7); Calc. Creatinine Clearance 69 mL/min (70-130); Calcium 9.2 mg/dL (7.8-10.44); Carbon Dioxide 34 mmol/L (23-31); Chloride 97 mmol/L (98-107); Estimated GFR-MDRD 43; Glucose 146 mg/dL (83-110); Potassium 4.1 mmol/L (3.5-5.1); Sodium 137 mmol/L (136-145)
[2019-09-09] MEDS: Levothyroxine 150 MCG TAB PO SCH (05:31)
[2019-09-09] MEDS: Mometasone 200 MCG/Formoterol 5 MCG 120 PUFF INHALER INH SCH (07:28)
[2019-09-09] MEDS: HumaLOG 300 UNITS/3 ML VIAL SC SCH ×2 (08:51→12:18)
[2019-09-09] MEDS: Pregabalin 75 MG CAP PO SCH (08:51)
[2019-09-09] MEDS ORDERED: Clopidogrel Bisulfate 75 MG TAB PO SCH (09:00)
--- NOTE | 2019-09-09 10:45 | PRG ---
DATE OF SERVICE: 09/09/2019 SUBJECTIVE: Darrin Oleary had no overnight complications. OBJECTIVE: VITAL SIGNS: He is afebrile. Heart rate 60s, respiratory rate is 18, oximetry is 93% on a litre and a half, blood pressure 130/66. LUNGS: Unchanged. HEART: Unchanged. ABDOMEN: Unchanged. LABORATORY DATA: White count 6.4, hemoglobin 11, platelets 194. Sodium 137, potassium 4.1, chloride 97, bicarb 34, BUN 27, creatinine 1.6. 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 I will notify the oncologist. He is stable to go to some type of rehab environment. Job ID: [id number]
[2019-09-09 12:43] VITALS: BP 141/63; TEMP 97.6
--- NOTE | 2019-09-09 14:29 | DIS ---
DATE OF ADMISSION: 08/31/2019 DATE OF DISCHARGE: 09/09/2019 DISCHARGE DISPOSITION: Home. FOLLOWUP: 1. Follow up with primary care physician, Dr. Lexy Sung in 1 week. 2. [facility] has been arranged. 3. Follow up with Oncology, Dr. Morse as scheduled. 4. Follow up with Dr. Woods in 2 weeks. The patient will also require an outpatient Neurosurgery evaluation due to lumbar lytic lesion. Fall precaution with 24-hour supervision was recommended. DISCHARGE MEDICATIONS: 1. Coreg 3.125 mg b.i.d. 2. Lisinopril was reduced to 2.5 mg at bedtime. All other home medications were left unchanged. The patient was advised to monitor blood pressure on a daily basis and to hold lisinopril if the blood pressures are in the lower range. BRIEF HOSPITAL COURSE: The patient is a 73-year-old male with diabetes mellitus type 2, COPD with chronic hypoxic respiratory failure, on home oxygen, presented to the hospital with generalized weakness and fall. He was found to have rhabdomyolysis. His chest CT scan was consistent with large right suprahilar mass along with the right lower lobe lung mass with paratracheal lymphadenopathy on the right. He has a history of rectal cancer in the past. He was also found to have rhabdomyolysis with CK of 2000 on admission. He was monitored on telemetry unit. His echocardiogram showed ejection fraction 55% to 60%. Due to intermittent confusion, brain MRI was done with and without contrast that was negative for brain metastasis. The patient was evaluated by multiple consultants including Pulmonary, Oncology. He underwent CT-guided lung biopsy that was consistent with squamous cell cancer. He will follow up with Oncology as outpatient. Initial plan was to discharge him to rehab. However, the insurance declined rehab stay. He will be discharged home with home health care. I discussed the plan of care with both the sons over the phone. He will benefit from a 24-hour supervision. SIGNIFICANT LABORATORY DATA: ABGs showed pH of 7.36 with pCO2 of 56.8, PO2 of 67 with bicarbonate 31. Creatinine on admission was 1.6 with repeat creatinine 1.21. Basic metabolic profile after 1 week is recommended. Primary care physician advised to follow. FINAL DIAGNOSES: 1. Generalized weakness with fall and rhabdomyolysis. 2. Near syncope secondary to orthostatic hypotension. 3. Lung mass, status post lung biopsy which was consistent with squamous cell cancer. 4. History of colon cancer. 5. Diabetes mellitus type 2. 6. Chronic obstructive pulmonary disease with chronic hypoxic respiratory failure, on home oxygen. 7. Toxic metabolic encephalopathy, probably secondary to chronic CO2 retention. MRI of the brain was negative for metastasis. 8. Obesity with a BMI of 34.3. 9. Gross hematuria. 10. Hyperlipidemia. 11. Urinary retention requiring Church catheter. Please note, Church catheter has been discontinued and the patient has been voiding fine. 12. Gross hematuria, resolved. 13. Physical deconditioning. 14. L3 lytic lesion. TIME SPENT: Time coordinating the discharge of this patient was 34 minutes. Job ID: [id number]
== END 2019-09-09 13:46 | disposition home health service (06) | DRG 557 ==
LOC: ERS 15:16 → 2NO 21:18
PROVIDERS: ADMIT Internal Medicine; ATTEND Internal Medicine
PROC: 0T9B70Z Drainage of Bladder with Drainage Device, Via Natural or Artificial Opening (ICD-10-PCS; 2019-09-01)
PROC: 0BBC3ZX Excision of Right Upper Lung Lobe, Percutaneous Approach, Diagnostic (ICD-10-PCS; principal; 2019-09-07)
DX: M62.82 Rhabdomyolysis (principal); G92 Toxic encephalopathy; J96.11 Chronic respiratory failure with hypoxia; C34.91 Malignant neoplasm of unspecified part of right bronchus or lung; I95.1 Orthostatic hypotension; E78.5 Hyperlipidemia, unspecified; I73.9 Peripheral vascular disease, unspecified; I11.0 Hypertensive heart disease with heart failure; E11.65 Type 2 diabetes mellitus with hyperglycemia; J43.9 Emphysema, unspecified; F17.210 Nicotine dependence, cigarettes, uncomplicated; E66.9 Obesity, unspecified; N40.1 Benign prostatic hyperplasia with lower urinary tract symptoms; R31.0 Gross hematuria; R33.8 Other retention of urine; I50.9 Heart failure, unspecified; M89.9 Disorder of bone, unspecified; K76.0 Fatty (change of) liver, not elsewhere classified; R59.0 Localized enlarged lymph nodes; R53.81 Other malaise; Z90.49 Acquired absence of other specified parts of digestive tract; Z99.81 Dependence on supplemental oxygen; Z85.048 Personal history of other malignant neoplasm of rectum, rectosigmoid junction, and anus; Z93.3 Colostomy status; Z95.5 Presence of coronary angioplasty implant and graft; Z79.02 Long term (current) use of antithrombotics/antiplatelets; Z79.84 Long term (current) use of oral hypoglycemic drugs; Z68.34 Body mass index [BMI] 34.0-34.9, adult
CPT/HCPCS: 32405; 36415; 36416; 70553; 71045; 71260; 74177; 77012; 80048; 80053; 80069; 80306; 81001; 82378; 82550; 82553; 82805; 83735; 83880; 84484; 85025; 85610; 85730; 88305; 88333; 88334; 88341; 88342; 88361; 93005; 93306; 93970; 96360; 96361; A9579; J1644; J1815; J2250; J3010; J3475; Q9967; S0028